=== PATIENT | female | born 1950 | race African-American/Black ===

== ENCOUNTER 2017-02-07 11:28 | Emergency (ER) | payer OTHER, MEDICAID ==
[2017-02-07 11:35] VITALS: BP 166/79; BMI 22.8
--- NOTE | 2017-02-07 11:48 | DR.GENAD ---
HPI - PCP Primary Care Physician: NFD - Complaint/Symptoms Chief Complaint Doctors Comments: out of medicines (lisinopril and neurontin) Chief Complaint:: PATIENT STATED SHE HAD A TOTAL KNEE REPLACEMENT IN [place] IN 2006 AND AGAIN IN 2011 AND IT HAS BEEN HURTING EVERY SINCE. SHE STATED THE DIZZINESS SINCE YESTERDAY. - Nurses notes reviewed Nurses Notes Review: Yes - Source History Provided: Patient - Mode of Arrival Mode of Arrival: Ambulatory - Timing Onset of Chief Complaint: 02/06/17 Came on: Gradually - Duration Duration: Constant How lon Duration: Days - Location Location: right knee chronic - Severity Severity: Mild - Modifying Factors Worsens:: movement - Associated Signs and Symptoms Associated Signs and Symptoms: dizzy onset yesterday PMH - PMH Past Medical History: Yes Past Medical History: Angina, Asthma, Hypertension Past Surgical History: Yes Surgical History: Ortho Surgery - Family History History of Family Medical Conditions: No - Social History Does patient currently use any type of tobacco product: Yes Have you used tobacco products in the last 12 months: Yes Type of Tobacco Use: Cigarettes How many years tobacco product used: 20 Does any household member use tobacco: No Alcohol Use: None Do you use any recreational Drugs:: No Lives With: Family Lives Where: Home - infectious screening In the last 2 months have you had wt loss of >10#?: NO Have you had fever, night sweats or hemotysis?: No Have you traveled outside the country in the last 6 months?: No Isolation: Standard ROS - Review of Systems Constitutional: No Symptoms Reported Eyes: No Symptoms Reported ENTM: No Symptoms Reported Respiratoy: No Symptoms Reported Cardiovascular: No Symptoms Reported Gastrointestinal/Abdominal: No Symptoms Reported Genitourinary: No Symptoms Reported Neurological: Dizziness Musculoskeletal: Knee Integumentary: No Symptoms Reported Hematologic/Lymphatic: No Symptoms Reported Endocrine: No Symptoms Reported Psychiatric: Depression PE - Vital Signs Vitals: Temperature 98.4 F Pulse Rate 68 Respiratory Rate 16 Blood Pressure 166/79 O2 Sat by Pulse Oximetry 100 - General Limitations: No Limitations General Appearance: Alert, In No Apparent Distress - Head Head Exam: Normal Inspection - Eyes Eye exam: Normal Appearance, EOMI. negative: Scleral Icterus, Conjunctival Injection - ENT ENT Exam: Normal Exam External Ear Exam: Normal External Inspection - Neck Neck Exam: Normal Inspection, Full ROM, Trachea Midline - Chest Chest Inspection: Normal Inspection - Respiratory Respiratory Exam: Normal Lung Sounds Bilat. negative: Accessory Muscle Use, Respiratory Distress Respiratory Exam: Bilateral Clear to Auscultation - Cardiovascular Cardiovascular Exam: Regular Rate - Extremities Extremities Exam: Tenderness (right knee). negative: Normal Inspection ( enlarged), Full ROM - Back Back Exam: Normal Inspection - Neurologic Neurological Exam: Alert, Oriented X3, CN II-XII Intact - Psychiatric Psychiatric Exam: Depressed - Skin Skin Exam: Intact, Normal Color ROR - Labs Reviewed Result Diagrams: 02/07/17 12:30 02/07/17 12:30 Laboratory: WBC 10.6 X10^3/uL (3.6-10.0) H 02/07/17 12:30 RBC 4.31 X10^6/uL (3.5-5.4) 02/07/17 12:30 Hgb 13.0 g/dL (12.0-16.0) 02/07/17 12:30 Hct 40.1 % (36.0-47.0) 02/07/17 12:30 MCV 93.2 fL (80.0-100.0) 02/07/17 12:30 MCH 30.2 pg (27.0-34.0) 02/07/17 12:30 MCHC 32.4 g/dL (33.0-35.0) L 02/07/17 12:30 RDW 15.8 % (11.6-16.5) 02/07/17 12:30 Plt Count 311 X10^3/uL (150.0-450.0) 02/07/17 12:30 MPV 9.0 fL (7.4-11.0) 02/07/17 12:30 Neut % 75.1 % (42.0-75.0) H 02/07/17 12:30 Lymph % 18.3 % (21.0-51.0) L 02/07/17 12:30 Bay % 4.5 % (0.0-13.0) 02/07/17 12:30 Eos % 0.8 % (0.9-2.9) L 02/07/17 12:30 Baso % 1.3 % (0.2-1.0) H 02/07/17 12:30 Neut # 8.0 x10^3/uL (2.2-4.8) H 02/07/17 12:30 Lymph # 1.9 X10^3/uL (1.3-2.9) 02/07/17 12:30 Bay # 0.5 x10^3/uL (0.3-0.8) 02/07/17 12:30 Eos # 0.1 x10^3/uL (0.0-0.2) 02/07/17 12:30 Baso # 0.1 X10^3/uL (0.0-0.1) 02/07/17 12:30 Absolute Nucleated RBC 0.0 /100WBC 02/07/17 12:30 Sodium 145 mmol/L (136-145) 02/07/17 12:30 Corrected Sodium TNP 02/07/17 12:30 Potassium 4.0 mmol/L (3.5-5.1) 02/07/17 12:30 Chloride 109 mmol/L (98-107) H 02/07/17 12:30 Carbon Dioxide 27.1 mmol/L (21-32) 02/07/17 12:30 BUN 15 mg/dL (7-18) 02/07/17 12:30 Creatinine 0.63 mg/dL (0.55-1.02) 02/07/17 12:30 Est GFR (MDRD) Af Amer > 60 (>60) 02/07/17 12:30 Est GFR (MDRD) Non-Af > 60 (>60) 02/07/17 12:30 Glucose 88 mg/dL (65-99) 02/07/17 12:30 Calcium 9.3 mg/dL (8.5-10.1) 02/07/17 12:30 - Diagnosis Discharge Problem: Left against medical advice - Discharge Plan Disposition: 07 AGAINST MEDICAL ADVICE Condition: Stable - Follow ups/Referrals Follow ups/Referrals: NFD,None [Primary Care Provider] - 3 days - Instructions
[2017-02-07 12:36] LABS: BASOPHILS # (AUTO) 0.1 X10^3/uL (0.0-0.1); BASOPHILS % (AUTO) 1.3 % (0.2-1.0); EOSINOPHILS # (AUTO) 0.1 x10^3/uL (0.0-0.2); EOSINOPHILS % (AUTO) 0.8 % (0.9-2.9); HEMATOCRIT 40.1 % (36.0-47.0); LYMPHOCYTES # (AUTO) 1.9 X10^3/uL (1.3-2.9); LYMPHOCYTES % (AUTO) 18.3 % (21.0-51.0); MEAN CORPUSCULAR HEMOGLOBIN 30.2 pg (27.0-34.0); MEAN CORPUSCULAR HGB CONC 32.4 g/dL (33.0-35.0); MEAN CORPUSCULAR VOLUME 93.2 fL (80.0-100.0); MONOCYTES # (AUTO) 0.5 x10^3/uL (0.3-0.8); MONOCYTES % (AUTO) 4.5 % (0.0-13.0); NEUTROPHILS % (AUTO) 75.1 % (42.0-75.0); PLATELET COUNT 311 X10^3/uL (150.0-450.0); RED BLOOD COUNT 4.31 X10^6/uL (3.5-5.4); RED CELL DISTRIBUTION WIDTH 15.8 % (11.6-16.5); WHITE BLOOD COUNT 10.6 X10^3/uL (3.6-10.0)
[2017-02-07 12:43] LABS: BLOOD UREA NITROGEN 15 mg/dL (7-18); CALCIUM 9.3 mg/dL (8.5-10.1); CARBON DIOXIDE 27.1 mmol/L (21-32); CHLORIDE 109 mmol/L (98-107); CREATININE 0.63 mg/dL (0.55-1.02); GLUCOSE 88 mg/dL (65-99); SODIUM 145 mmol/L (136-145); eGFR BLACK RACES > 60 (>60); eGFR NON BLACK RACES > 60 (>60)
== END 2017-02-07 12:46 | disposition left against medical advice (07) ==
LOC: ER 12:00
DX: M25.561 Pain in right knee (principal)
CPT/HCPCS: 36415; 80048; 85025; 99282

== ENCOUNTER → 2017-02-16 | Outpatient (CLI) | payer OTHER, MEDICAID ==
[2017-02-07 11:35] VITALS: BP 166/79
--- NOTE | 2017-02-16 09:23 | RAD ---
HISTORY: Low back pain Study: Lumbar spine three view Comparison: None Findings: The alignment is normal. The vertebral bodies are of average height. Degenerative disc disease is pr esent at L1-2, L2-3, L5-S1. The pedicles are intact. The SI joints are normal. IMPRESSION: Multilevel degenerative disc disease involving L1-2, L2-3, L5-S1 Reported By:
--- NOTE | 2017-02-16 09:23 | RAD ---
HISTORY: Right knee pain Study: Three views right knee Comparison: None Findings: There is a right knee arthroplasty revision seen. There is lucency surrounding the lateral femoral c ondylar component of the prosthesis. There is a moderate-sized joint effusion present. No acute frac ture identified. There are vascular calcifications noted. IMPRESSION: 1. Right knee arthroplasty revision with lucency surrounding the lateral femoral condylar component of indeterminate age. Correlation with any old films would be beneficial to exclude new hardware loo sening or infection. 2. There is a moderate-sized joint effusion. Reported By:
== END ==
LOC: RAD 08:07
PROVIDERS: ATTEND Nurse Practitioner Family
DX: M54.5 Low back pain (principal); M51.36 Other intervertebral disc degeneration, lumbar region; M51.37 Other intervertebral disc degeneration, lumbosacral region; M25.561 Pain in right knee; M25.461 Effusion, right knee
CPT/HCPCS: 72100; 73560

== ENCOUNTER → 2017-03-20 | Outpatient (CLI) | payer OTHER, MEDICAID ==
[2017-03-20 10:26] LABS: BASOPHILS # (AUTO) 0.1 X10^3/uL (0.0-0.1); BASOPHILS % (AUTO) 0.9 % (0.2-1.0); EOSINOPHILS # (AUTO) 0.1 x10^3/uL (0.0-0.2); EOSINOPHILS % (AUTO) 0.6 % (0.9-2.9); HEMATOCRIT 38.3 % (36.0-47.0); HEMOGLOBIN 12.7 g/dL (12.0-16.0); LYMPHOCYTES # (AUTO) 2.2 X10^3/uL (1.3-2.9); LYMPHOCYTES % (AUTO) 21.8 % (21.0-51.0); MEAN CORPUSCULAR HEMOGLOBIN 30.7 pg (27.0-34.0); MEAN CORPUSCULAR HGB CONC 33.1 g/dL (33.0-35.0); MEAN CORPUSCULAR VOLUME 92.9 fL (80.0-100.0); MEAN PLATELET VOLUME 8.2 fL (7.4-11.0); MONOCYTES # (AUTO) 0.4 x10^3/uL (0.3-0.8); MONOCYTES % (AUTO) 3.7 % (0.0-13.0); NEUTROPHILS # (AUTO) 7.4 x10^3/uL (2.2-4.8); PLATELET COUNT 332 X10^3/uL (150.0-450.0); RED BLOOD COUNT 4.13 X10^6/uL (3.5-5.4); RED CELL DISTRIBUTION WIDTH 15.1 % (11.6-16.5); WHITE BLOOD COUNT 10.1 X10^3/uL (3.6-10.0)
[2017-03-20 10:42] LABS: ALANINE AMINOTRANSFERASE 26 Units/L (12-78); ALBUMIN 3.9 g/dL (3.4-5.0); ALKALINE PHOSPHATASE 79 Units/L (46-116); ASPARTATE AMINO TRANSFERASE 12 Units/L (15-37); BLOOD UREA NITROGEN 15 mg/dL (7-18); CALCIUM 9.2 mg/dL (8.5-10.1); CARBON DIOXIDE 26.1 mmol/L (21-32); CHLORIDE 106 mmol/L (98-107); CHOL/HDL RATIO 3.1 (0.0-5.0); CHOLESTEROL 215 mg/dL (0-200); CREATININE 0.64 mg/dL (0.55-1.02); GLUCOSE 109 mg/dL (65-99); HDL CHOLESTEROL 69 mg/dL (40-60); SODIUM 143 mmol/L (136-145); TOTAL PROTEIN 7.9 g/dL (6.4-8.2); TRIGLYCERIDES 78 mg/dL (0-150); eGFR BLACK RACES > 60 (>60); eGFR NON BLACK RACES > 60 (>60)
[2017-03-20 11:07] LABS: ERYTHROCYTE SEDIMENTATION RATE 22 MM/HOUR (0-20)
== END ==
LOC: LAB 09:56
PROVIDERS: ATTEND Nurse Practitioner Family
DX: Z00.00 Encounter for general adult medical examination without abnormal findings (principal); I10 Essential (primary) hypertension; M25.461 Effusion, right knee
CPT/HCPCS: 36415; 80053; 80061; 85025; 85652; 86140

== ENCOUNTER → 2017-05-02 | Outpatient (CLI) | payer OTHER, MEDICAID ==
--- NOTE | 2017-05-02 15:32 | MRI ---
MRI lumbar spine without contrast Indication: Lower back pain Technique: Multisequence, multiplanar MR images of the lumbar spine were obtained without IV contras t. Comparison: Radiograph February 16, 2017 Findings: Apart from Modic type 2 degenerative endplate changes at L1-L2 and L5-S1, marrow signal is normal. No acute fracture, malalignment or suspicious osseous lesion is identified. The conus is no rmal in signal and caliber, terminating at L1-L2. The cauda equina is unremarkable. Apart from a sma ll probable left renal cyst, the imaged paraspinal soft tissues demonstrate no gross, unexpected fin dings. T12-L1, L1-L2: Mild disc desiccation/narrowing. Otherwise, unremarkable. L2-L3: Mild disk desiccation and moderate disc space narrowing with moderate broad-based disc bulge results in mild canal and bilateral foraminal narrowing. L3-L4: Mild broad-based disk bulge, ligamentum hypertrophy and facet arthropathy results in mild can al and bilateral foraminal narrowing. L4-L5: Mild broad-based disk bulge and facet arthropathy without significant canal or foraminal sten osis. L5-S1: Advanced disc desiccation/narrowing with moderate broad-based disc bulge, ligamentum thickeni ng and facet arthropathy, resulting in moderate bilateral foraminal stenosis and mild canal narrowin g. Impression: Mild-moderate multilevel degenerative changes of the lumbar spine, most significant at L5-S1 as deta iled above. Reported By:
== END ==
LOC: RAD 13:16
PROVIDERS: ATTEND Pain Medicine Pain Medicine
DX: Z79.891 Long term (current) use of opiate analgesic (principal); M51.16 Intervertebral disc disorders with radiculopathy, lumbar region; M47.896 Other spondylosis, lumbar region
CPT/HCPCS: 72148

== ENCOUNTER 2017-08-21 20:33 | Emergency (ER) | payer OTHER, MEDICAID ==
[2017-08-21 20:42] VITALS: BMI 22.0
[2017-08-21] MEDS ORDERED: NITROSTAT SL ONE (21:15)
[2017-08-21] MEDS ORDERED: ASPIRIN ONE (21:15)
[2017-08-21] MEDS: NITROSTAT SL PRN ×3 (21:18→21:28)
--- NOTE | 2017-08-21 21:22 | DR.CP ---
HPI - Time Seen Time seen: 20:45 - PCP Primary Care Physician: gloria casillas - HPI Comment HPI Comment: Patient admits to left sided chest pain radiating down left arm. She admits to cardiac stents in the past. - Complaint Chief Complaint:: LEFT SIDED CHEST PAIN RADIATES DOWN LEFT ARM WITH SHORTNESS OF BREATH STARTED 30 MINS AGO. DENIES N/V. - Source History Provided: Patient - Mode of Arrival Mode of Arrival: Ambulatory - Timing Onset of Chief Complaint: 08/21/17 PMH - PMH Past Medical History: Yes Past Medical History: Angina, Asthma, Hypertension Past Surgical History: No Surgical History: Ortho Surgery - Family History History of Family Medical Conditions: Yes Family Medical History: Diabetes Mellitus, Hypertension - Social History Type of Tobacco Use: Cigarettes Alcohol Use: None Do you use any recreational Drugs:: No Lives With: Family Lives Where: Home - infectious screening Have you traveled outside the country in the last 6 months?: No Isolation: Standard ROS - Review of Systems Eyes: No Symptoms Reported ENTM: No Symptoms Reported Respiratoy: No Symptoms Reported Cardiovascular: Chest Pain Gastrointestinal/Abdominal: No Symptoms Reported Genitourinary: No Symptoms Reported Neurological: No Symptoms Reported Musculoskeletal: No Symptoms Reported Integumentary: No Symptoms Reported Hematologic/Lymphatic: No Symptoms Reported Endocrine: No Symptoms Reported Psychiatric: No Symptoms Reported All Other Systems: Reviewed and Negative PE - Vitals Vitals: Temperature 97.0 F Pulse Rate [Apical] 58 Pulse Rate 77 Respiratory Rate 16 Blood Pressure [Left Arm] 174/74 Blood Pressure 142/77 O2 Sat by Pulse Oximetry 98 - General General Appearance: Alert, Anxious - Head Head Exam: Normal Inspection, Atraumatic - Eyes Eye exam: Normal Appearance, PERRL, EOMI - ENT ENT Exam: Normal Exam - Chest Chest Inspection: Normal Inspection - Respiratory Respiratory Exam: Normal Lung Sounds Bilat Respiratory Exam: Bilateral Clear to Auscultation - Cardiovascular Cardiovascular Exam: Regular Rate, Normal Rhythm, Other (chest wall pain to palpation left superior breast) Pulse: Normal Edema: Normal - Abdominal Exam Abdominal Exam: Normal Inspection, Normal Bowel Sounds Abdominal Tenderness: RUQ. negative: RLQ, LUQ, LLQ, Epigastrium, Suprapubic, Diffuse, Mild, Moderate, Severe, Other - Extremities Extremities Exam: Normal Inspection, Full ROM - Back Back Exam: Normal Inspection - Neurologic Neurological Exam: Alert, Oriented X3, CN II-XII Intact - Psychiatric Psychiatric Exam: Normal Affect, Normal Mood - Skin Skin Exam: Warm, Dry, Intact MDM - Differential Diagnosis Differential Diagnosis: Angina Course - Treatment Treatment: Cardiac workup negative to include EKG and cardiac profile x three each. - Reevaluation 1st: Improved ROR - Labs Reviewed Result Diagrams: 08/21/17 21:25 08/21/17 21:25 Laboratory: WBC 10.7 X10^3/uL (3.6-10.0) H 08/21/17 21:25 RBC 3.80 X10^6/uL (3.5-5.4) 08/21/17 21:25 Hgb 11.6 g/dL (12.0-16.0) L 08/21/17 21: Hct 35.3 % (36.0-47.0) L 08/21/17 21:25 MCV 93.0 fL (80.0-100.0) 08/21/17 21: MCH 30.7 pg (27.0-34.0) 08/21/17 21:25 MCHC 33.0 g/dL (33.0-35.0) 08/21/17 21: RDW 14.6 % (11.6-16.5) 08/21/17 21: Plt Count 282 X10^3/uL (150.0-450.0) 08/21/17 21:25 MPV 8.8 fL (7.4-11.0) 08/21/17 21: Neut % 65.7 % (42.0-75.0) 08/21/17 21: Lymph % 29.2 % (21.0-51.0) 08/21/17 21:25 Harrison % 4.2 % (0.0-13.0) 08/21/17 21: Eos % 0.4 % (0.9-2.9) L 08/21/17 21:25 Baso % 0.5 % (0.2-1.0) 08/21/17 21:25 Neut # 7.0 x10^3/uL (2.2-4.8) H 08/21/17 21:25 Lymph # 3.1 X10^3/uL (1.3-2.9) H 08/21/17 21:25 Harrison # 0.5 x10^3/uL (0.3-0.8) 08/21/17 21:25 Eos # 0.0 x10^3/uL (0.0-0.2) 08/21/17 21:25 Baso # 0.0 X10^3/uL (0.0-0.1) 08/21/17 21:25 Absolute Nucleated RBC 0.0 /100WBC 08/21/17 21:25 INR Target Range - 08/21/17 21:25 INR 0.94 (0.8-1.3) 08/21/17 21:25 PTT 30.2 SECONDS (22.9-36.5) 08/21/17 21:25 PTT Comment - 08/21/17 21:25 D-Dimer 238 ng/mL (0-400) 08/21/17 21:25 Sodium 145 mmol/L (136-145) 08/21/17 21:25 Corrected Sodium TNP 08/21/17 21:25 Potassium 3.5 mmol/L (3.5-5.1) 08/21/17 21:25 Chloride 110 mmol/L (98-107) H 08/21/17 21:25 Carbon Dioxide 27.0 mmol/L (21-32) 08/21/17 21:25 BUN 17 mg/dL (7-18) 08/21/17 21:25 Creatinine 0.87 mg/dL (0.55-1.02) 08/21/17 21:25 Est GFR (MDRD) Af Amer > 60 (>60) 08/21/17 21:25 Est GFR (MDRD) Non-Af > 60 (>60) 08/21/17 21:25 Glucose 102 mg/dL (65-99) H 08/21/17 21:25 Calcium 9.5 mg/dL (8.5-10.1) 08/21/17 21:25 Corrected Calcium TNP 08/21/17 21:25 Magnesium 1.9 mg/dL (1.7-2.9) 08/21/17 21:25 Total Bilirubin 0.20 mg/dL (0.2-1.0) 08/21/17 21:25 AST 14 Units/L (15-37) L 08/21/17 21:25 ALT 15 Units/L (12-78) 08/21/17 21:25 Alkaline Phosphatase 68 Units/L (46-116) 08/21/17 21:25 Creatine Kinase 53 Units/L (26-192) 08/22/17 07:20 CK-MB (CK-2) < 1.0 ng/mL (0-4.0) 08/22/17 07:20 CK/CKMB % Calc 1.9 % (<4) 08/22/17 07:20 Troponin I < 0.02 ng/mL (0-1.5) 08/22/17 07:20 Total Protein 7.1 g/dL (6.4-8.2) 08/21/17 21:25 Albumin 3.7 g/dL (3.4-5.0) 08/21/17 21:25 Globulin 3.4 g/dL (2.5-4.5) 08/21/17 21:25 Albumin/Globulin Ratio 1.1 Ratio (1.1-2.1) 08/21/17 21:25 Triglycerides 75 mg/dL (0-150) 08/22/17 02:00 Cholesterol 195 mg/dL (0-200) 08/22/17 02:00 LDL Cholesterol, Calc 127 mg/dL (0-100) H 08/22/17 02:00 HDL Cholesterol 53 mg/dL (40-60) 08/22/17 02:00 Cholesterol/HDL Ratio 3.7 (0.0-5.0) 08/22/17 02:00 - XRAY XRAY Interpreted by: Radiologist (Cherkst: The trachae is midline. The cardiac silhouette is enlarged with prominent perihilar lung markings and interstitium. The lungs are clear without focal consolidation,effusion or penumothorax. kSoft tissues are unremarkable. Osseous structures unremarkable Impression: Cardiomegaly with prominent interstitium and perihilar lung markings consistent with history of asthma.) - Diagnosis Discharge Problem: Chest pain Qualifiers: Chest pain type: unspecified Qualified Code(s): R07.9 - Chest pain, unspecified - Discharge Plan Condition: Stable - Follow ups/Referrals Follow ups/Referrals: NFD,None [Primary Care Provider] - 3 days - Instructions
--- NOTE | 2017-08-21 21:28 | RAD ---
HISTORY: 66-year-old female with left-sided chest pain radiating down her left arm with shortness of breath. History of asthma and CHF. Study: Frontal view of the chest. Comparison: None. Findings: The trachea is midline. The cardiac silhouette is enlarged with prominent perihilar lung markings an d interstitium. The lungs are clear without focal consolidation, effusion or pneumothorax. Soft tiss ues are unremarkable. Osseous structures are unremarkable. IMPRESSION: 1. Cardiomegaly with prominent interstitium and perihilar lung markings consistent with history of a sthma. Reported By:
[2017-08-21 21:37] LABS: BASOPHILS % (AUTO) 0.5 % (0.2-1.0); EOSINOPHILS % (AUTO) 0.4 % (0.9-2.9); HEMATOCRIT 35.3 % (36.0-47.0); HEMOGLOBIN 11.6 g/dL (12.0-16.0); LYMPHOCYTES # (AUTO) 3.1 X10^3/uL (1.3-2.9); LYMPHOCYTES % (AUTO) 29.2 % (21.0-51.0); MEAN CORPUSCULAR HEMOGLOBIN 30.7 pg (27.0-34.0); MEAN PLATELET VOLUME 8.8 fL (7.4-11.0); MONOCYTES # (AUTO) 0.5 x10^3/uL (0.3-0.8); MONOCYTES % (AUTO) 4.2 % (0.0-13.0); NEUTROPHILS % (AUTO) 65.7 % (42.0-75.0); PLATELET COUNT 282 X10^3/uL (150.0-450.0); RED CELL DISTRIBUTION WIDTH 14.6 % (11.6-16.5); WHITE BLOOD COUNT 10.7 X10^3/uL (3.6-10.0)
[2017-08-21 21:50] LABS: ALANINE AMINOTRANSFERASE 15 Units/L (12-78); BLOOD UREA NITROGEN 17 mg/dL (7-18); CREATINE KINASE 43 Units/L (26-192); MAGNESIUM 1.9 mg/dL (1.7-2.9); eGFR BLACK RACES > 60 (>60); eGFR NON BLACK RACES > 60 (>60)
[2017-08-21] MEDS ORDERED: ASPIRIN PO SCH (22:00)
[2017-08-21 22:03] LABS: CALCIUM 9.5 mg/dL (8.5-10.1); CHLORIDE 110 mmol/L (98-107); CREATININE 0.87 mg/dL (0.55-1.02); SODIUM 145 mmol/L (136-145); TROPONIN I < 0.02 ng/mL (0-1.5)
[2017-08-21 22:07] LABS: ALBUMIN 3.7 g/dL (3.4-5.0); ALKALINE PHOSPHATASE 68 Units/L (46-116); ASPARTATE AMINO TRANSFERASE 14 Units/L (15-37); CKMB % 2.3 % (<4); CREATINE KINASE MB < 1.0 ng/mL (0-4.0); TOTAL PROTEIN 7.1 g/dL (6.4-8.2)
--- NOTE | 2017-08-22 01:44 | CT ---
CT chest without contrast Indication: Left chest wall pain Comparison: None available Technique: Multiple axial images of the chest were obtained from the thoracic inlet to the upper abdo men without the administration of IV contrast. Findings: The thyroid gland is unremarkable. The thoracic aorta demonstrates ectasia of the ascending thoracic aorta measuring 4 cm in greatest dimension on axial image 20. There is ectasia of the aortic arch peng suring 3.3 cm on image 22. Descending thoracic aorta is normal in caliber. There is no para aortic he matoma or stranding. Small amount of fluid is noted within pericardial recess. Heart size is enlarged without pericardial effusion. No enlarged mediastinal or hilar lymphadenopathy. Calcified atheroscle rotic disease is noted within the coronary arteries. No focal airspace opacity, nodule mass. No pleur al effusion. Imaging of the upper abdomen demonstrates no acute inflammatory process given limitation s of a noncontrast exam. Review of bone windows demonstrates no acute osseous abnormality. 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 There is no evidence of acute aortic synd dorcas however evaluation is significantly limited given lack of IV contrast administration. 2. Cardiomegaly. 3. No acute airspace disease. Reported By:
[2017-08-22 02:34] LABS: CHOL/HDL RATIO 3.7 (0.0-5.0)
[2017-08-22 02:45] LABS: CKMB % 2.4 % (<4); CREATINE KINASE 41 Units/L (26-192); CREATINE KINASE MB < 1.0 ng/mL (0-4.0); TROPONIN I < 0.02 ng/mL (0-1.5)
[2017-08-22 07:47] LABS: CKMB % 1.9 % (<4); CREATINE KINASE 53 Units/L (26-192); CREATINE KINASE MB < 1.0 ng/mL (0-4.0); TROPONIN I < 0.02 ng/mL (0-1.5)
[2017-08-22 08:39] VITALS: BP 154/72
== END 2017-08-22 08:39 | disposition home or self-care (01) ==
LOC: ER 20:51
DX: R07.89 Other chest pain (principal); I51.7 Cardiomegaly; I77.819 Aortic ectasia, unspecified site
CPT/HCPCS: 36415; 71010; 71250; 80053; 80061; 82550; 82553; 83735; 84484; 85025; 85378; 85610; 85730; 93005; 93010; 96365; 99283; 99285; A4222